=== PATIENT | female | born 1990 | race Caucasian/White ===

== ENCOUNTER 2016-12-14 00:24 | Emergency (ER) | payer OTHER ==
[~2016-12-14] VITALS: Ht 172.7 cm; Wt 65.5 kg
[2016-12-14 00:26] VITALS: TEMP 37; Ht 172.7 cm; Wt 65.5 kg
[2016-12-14] MEDS ORDERED: PHENAZOPYRIDINE HCL 200 MG TAB PO STA (00:49)
[2016-12-14] MEDS ORDERED: PHENAZOPYRIDINE HOME PACK 200 MG VIAL PO ONE (01:00)
[2016-12-14] MEDS ORDERED: NITROFURANTOIN MONOHYDRATE 100 MG CAP PO ONE (01:00)
[2016-12-14] MEDS ORDERED: MACROBID 100MG HOME PACK 1 EA VIAL PO ONE (01:00)
[2016-12-14] MEDS ORDERED: PHEN-876 PO (01:03)
[2016-12-14] MEDS ORDERED: NITR-5 PO (01:03)
--- NOTE | 2016-12-14 01:04 | EMERGENCY ROOM VISIT NOTE ---
ED Visit Note First contact with patient: 00:31 Chief Complaint: Blood in Urine, Difficulty Breathing on Urination History of Present Illness: Patient is a 26-year-old female who presents to the emergency Department this evening for evaluation of her dysuria and blood in urine. She reports that naproxen a 7 PM she developed increasing urinary frequency as well as burning with urination. She had blood in her urine. She' s had no fevers or chills. There is been no vomiting despite nausea. She reports that she is now having difficulty with urination. The patient reports no significant history of urinary tract infections. She reports vaginal spotting which is not uncommon for the patient. She rates her current discomfort as a 5/10. She is tried nothing ajah-bdt-[id number] for her symptoms. She denies any dizziness, lightheadedness, dental pain, hematochezia, or chance for . Medications: Reviewed and discussed with the patient. Allergies: Ibuprofen, naproxen PMH: No pertinent past medical history. SHx: Patient is a 26-year-old female who lives locally. ROS: All pertinent positive and negative review of systems are appropriately documented in the History of Present Illness. Physical Exam: VITAL SIGNS - Vital signs and Nursing Notes were reviewed. GENERAL -26-year-old female, well-developed, well-nourished, and in no acute distress. ABDOMEN - Abdomen soft and nontender to palpation. Bowel sounds normoactive all 4 quadrants. NEURO - Patient is A&Ox3 and communicates appropriately with the provider. ED Course: Patient was seen and evaluated by myself. Urine dip was obtained. I had a lengthy discussion with the patient regarding symptoms and management. The patient was provided initial dose of Macrobid in the emergency department as well as Pyridium. Her abdomen is soft and nontender to palpation. She is afebrile. The patient will be treated for likely acute cystitis. She'll follow closely with her primary care provider or return for any changing/ worsening symptoms. Patient discharged home afebrile and in good condition. In the evaluation and treatment of this patient, the following differential diagnoses were considered: Bladder Cancer, Chlamydial Genitourinary Infection, Cystitis, Herpes Simplex, Interstitial Cystitis, PID, Pyelonephritis, Urethritis , or Vaginitis. Impression: UTI, Dysuria Discharge Instructions: You have been treated in the Emergency Department for a Urinary Tract Infection (UTI). You have been prescribed Macrobid to be taken as prescribed. This is an antibiotic. All antibiotics have the potential to cause diarrhea. Stop this medication and contact a medical provider if you were to develop any significant adverse side effects including: wheezing, shortness of breath, passing out, vomiting, or a diffuse rash. Always take antibiotics as directed and COMPLETE the ENTIRE course regardless of the improvement of your symptoms. For pain control, you can use the following mauz-rve-dbmtjjg medicines (if >12 yo): - Regular strength (325mg/tab) Tylenol (acetaminophen) 2 tabs every 4-6 hours as needed. Do not exceed 12 tablets in a 24 hour period. Avoid taking more than 4 grams (4000 mg) of Tylenol per day. This includes any other sources of acetaminophen you may take on a regular basis. - Regular strength (200 mg/tab) Advil (ibuprofen) 1-2 tabs every 4-6 hours as needed. Do not exceed a dose of 3200 mg per day. You have been prescribed Pyridium to be taken as prescribed. This medicine will help with the urinary symptoms that you have been experiencing. Be aware that Pyridium may turn your urine a red-orange or brown color. This effect is harmless. Drink plenty of water and stay well hydrated. As with any trip to the Emergency Department, you should follow-up with your Primary Care Provider from today's visit. Return to the emergency department if your symptoms persist despite treatment plan outlined above or if the following symptoms occur: increased fevers, chills , low back pain, nausea/vomiting, or blood in your urine. Current/Historical Medications Scheduled Nitrofurantoin Monohyd Macrocr (Macrobid), 100 MG PO BID Phenazopyridine HCl (Pyridium), 200 MG PO TID Allergies Coded Allergies: Ibuprofen (Verified Allergy, Mild, Itching and swelling, 12/14/16) Naproxen (Verified Allergy, Mild, Itching and swelling, 12/14/16) Vital Signs Date Time Temp Pulse Resp B/P Pulse Ox O2 Delivery O2 Flow Rate FiO2 12/14/16 01:13 74 16 112/54 100 12/14/16 00:26 37.0 85 16 158/106 98 Room Air Laboratory Results Test 12/14/16 00:35 Urine Color ORANGE Urine Appearance CLEAR (CLEAR) Urine pH 6.0 (4.5-7.5) Urine Specific [place] 1.017 (1.000-1.030) Urine Protein NEG (NEG) Urine Glucose (UA) NEG (NEG) Urine Ketones NEG (NEG) Urine Occult Blood 3+ (NEG) Urine Nitrite NEG (NEG) Urine Bilirubin NEG (NEG) Urine Urobilinogen NEG (NEG) Urine Leukocyte Esterase SMALL (NEG) Urine WBC (Auto) 10-30 /hpf (0-5) Urine RBC (Auto) >30 /hpf (0-4) Urine Hyaline Casts (Auto) 1-5 /lpf (0-5) Urine Epithelial Cells (Auto) >30 /lpf (0-5) Urine Bacteria (Auto) NEG (NEG) Urine Test NEG (NEG) Medications Administered Medications (Trade) Dose Ordered Sig/Chaim Route Start Time Stop Time Status Last Admin Dose Admin Nitrofurantoin Macrocrystals (Macrobid Cap) 100 mg ONE ONCE PO 12/14/16 01:00 12/14/16 01:01 DC 12/14/16 01:08 100 MG Nitrofurantoin (Macrobid Homepack 100MG) 1 homepack UD ONCE PO 12/14/16 01:00 12/14/16 01:01 DC 12/14/16 01:09 1 HOMEPACK Phenazopyridine HCl (Phenazopyridine HCl 200MG Home Pack) 1 homepack UD ONCE PO 12/14/16 01:00 12/14/16 01:01 DC 12/14/16 01:09 1 HOMEPACK Phenazopyridine HCl (Pyridium Tab) 200 mg NOW STAT PO 12/14/16 00:49 12/14/16 00:51 DC 12/14/16 01:09 200 MG Departure Information Impression Primary Impression: Urinary tract infection Additional Impression: Dysuria Dispostion Home / Self-Care Condition GOOD Prescriptions Phenazopyridine HCl (Pyridium) 200 Mg Tab 200 MG PO TID for 3 Days, #9 TAB Prov: Mahamed Luis PA-C 12/14/16 Nitrofurantoin Monohyd Macrocr (Macrobid) 100 Mg Cap 100 MG PO BID for 5 Days, #10 CAP Prov: Mahamed Luis PA-C 12/14/16 Referrals [facility] (PCP) Patient Instructions ED UTI Cystitis Female, My [facility] Additional Instructions You have been treated in the Emergency Department for a Urinary Tract Infection (UTI). You have been prescribed Macrobid to be taken as prescribed. This is an antibiotic. All antibiotics have the potential to cause diarrhea. Stop this medication and contact a medical provider if you were to develop any significant adverse side effects including: wheezing, shortness of breath, passing out, vomiting, or a diffuse rash. Always take antibiotics as directed and COMPLETE the ENTIRE course regardless of the improvement of your symptoms. For pain control, you can use the following akwh-evm-zmhtgyc medicines (if >12 yo): - Regular strength (325mg/tab) Tylenol (acetaminophen) 2 tabs every 4-6 hours as needed. Do not exceed 12 tablets in a 24 hour period. Avoid taking more than 4 grams (4000 mg) of Tylenol per day. This includes any other sources of acetaminophen you may take on a regular basis. - Regular strength (200 mg/tab) Advil (ibuprofen) 1-2 tabs every 4-6 hours as needed. Do not exceed a dose of 3200 mg per day. You have been prescribed Pyridium to be taken as prescribed. This medicine will help with the urinary symptoms that you have been experiencing. Be aware that Pyridium may turn your urine a red-orange or brown color. This effect is harmless. Drink plenty of water and stay well hydrated. As with any trip to the Emergency Department, you should follow-up with your Primary Care Provider from today's visit. Return to the emergency department if your symptoms persist despite treatment plan outlined above or if the following symptoms occur: increased fevers, chills , low back pain, nausea/vomiting, or blood in your urine. Problem Qualifiers Primary Impression: Urinary tract infection Urinary tract infection type: acute cystitis Hematuria presence: with hematuria Qualified Codes: N30.01 - Acute cystitis with hematuria
[2016-12-14 01:13] VITALS: BP 112/54; PULSE 74; O2SAT 100
[2016-12-14 01:26] LABS: URINE APPEARANCE CLEAR (CLEAR); URINE BILIRUBIN NEG (NEG); URINE COLOR ORANGE; URINE EPITHELIAL CELL AUTO >30 /lpf (0-5); URINE NITRITE NEG (NEG); URINE SPECIFIC GRAVITY 1.017 (1.000-1.030); UROBILINOGEN NEG (NEG); ZZUR CULT IF INDIC CLEAN CATCH YES
[2016-12-14 01:27] LABS: MANUAL MICROSCOPIC REQUIRED? NO; REVIEW REQ? NO
== END 2016-12-14 01:12 | disposition home or self-care (01) ==
LOC: C.EDB 00:26 → C.EDA 01:12
DX: N30.01 Acute cystitis with hematuria (principal); R30.0 Dysuria